=== PATIENT | female | born 1975 | race Caucasian/White ===

== ENCOUNTER 2019-06-14 19:10 | Observation (INO) ==
[2019-06-14] MEDS ORDERED: Ketorolac 15 MG/ML VIAL IVP ONE (19:38)
[2019-06-14] MEDS ORDERED: 0.9 % Sodium Chloride 1,000 ML IVC ONE (19:38)
[2019-06-14] MEDS ORDERED: Ondansetron 4 MG/2 ML VIAL IVP ONE ×2 (19:38→21:26)
--- NOTE | 2019-06-14 20:33 | Emergency Department Note ---
Disposition Clinical Impression: Pyelonephritis, Acute kidney injury Leukocytosis Qualifiers: Leukocytosis type: unspecified Qualified Code(s): D72.829 - Elevated white blood cell count, unspecified Disposition: Admitted As Inpatient Condition: Fair Time of Disposition: 22:08 General Adult HPI - General Chief complaint: ED Abdominal Pain Stated complaint: Right flank pain, abdominal pain Time Seen by Provider: 06/14/19 19:28 Source: patient Mode of arrival: ambulatory Limitations: no limitations Nursing Notes Reviewed: Yes Vital Signs Reviewed: Yes - History of Present Illness HPI Narrative: 43-year-old female with no significant past medical history presenting to the emergency department chief complaint of flank pain, nausea and vomiting. Patient states approximately 10 days ago she was diagnosed with urinary tract infection and placed on Bactrim. She continued to have symptoms. She was called and stated that her culture grew out Pseudomonas. She followed up with her primary care physician who changed her antibiotics to ciprofloxacin but patient remains symptomatic and for the past 2 days has had right-sided flank pain, nausea, vomiting and diaphoresis. She states she has been taking ib uprofen [id number] for pain relief but does feel that she has had a fever. Pain Scale: 8 - Related Data Home Medications Medication Instructions Recorded Confirmed Estradiol [Estrace] 1 mg PO DAILY 05/25/16 06/15/19 FLUoxetine HCl [Fluoxetine HCl] 40 mg PO DAILY 06/15/19 06/15/19 Omeprazole [PriLOSEC] 20 mg PO DAILY 06/15/19 06/15/19 Allergies Allergy/AdvReac Type Severity Reaction Status Date / Time prochlorperazine Allergy Seizure Verified 06/30/16 20:58 [From Compazine] All systems ED: reviewed and negative except as stated. Constitutional: Reports: as per HPI Eyes: Reports: as per HPI ENT ED: Reports: as per HPI Cardiovascular: Denies: chest pain Respiratory: Denies: dyspnea Gastrointestinal: Reports: nausea, vomiting Genitourinary: Reports: as per HPI Musculoskeletal: Reports: as per HPI Integumentary: Reports: as per HPI Neurological: Reports: as per HPI Psychiatric: Reports: as per HPI Endocrine: Reports: as per HPI Hematological/Lymphatic: Reports: as per HPI Allergic/Immunologic: Reports: as per HPI Past Medical History - Past Medical History Attestation: Yes The following information was validated with the patient. Medical history: Reports: cancer, GERD, kidney stones, other Surgical history: Reports: hysterectomy, other Psychiatric history: Reports: anxiety, depression MANAGER FINANCIAL REPORTING history: Reports: no MANAGER FINANCIAL REPORTING history - Social History Smoking Status: Never smoker Smokeless Tobacco Status: No Alcohol use: Reports: none Drug use: Reports: none Physical Exam - General Limitations: no limitations General appearance: alert, in no apparent distress - Head Head exam: atraumatic, normocephalic, normal inspection - Eye Eye exam: Absent: scleral icterus - ENT ENT exam: mucous membranes dry - Neck Neck exam: Present: full ROM - Chest Chest inspection: Present: symmetric chest wall rise - Respiratory Respiratory exam: Present: normal lung sounds bilaterally. Absent: respiratory distress, wheezes - Cardiovascular Cardiovascular exam: Present: regular rate, normal rhythm, normal heart sounds - Abdominal Exam Abdominal exam: Present: soft, tenderness (Right flank). Absent: distention, guarding, rebound, rigidity - Extremities Exam Extremities exam: Present: full ROM - Neurological Exam Neurological exam: Present: alert, oriented X3 - Psychiatric Psychiatric exam: Present: normal affect - Skin Skin exam: Present: warm Course Course Narrative: 43-year-old female presenting to the emergency department chief complaint of right flank pain, nausea and vomiting. In the room she is alert and oriented 3 and hemodynamically stable. She is diaphoretic on exam. She does have right flank pain and suprapubic abdominal pain. Concern for pyelonephritis versus infected kidney stone his patient does have a history of stones in the past. We will obtain basic labs, urine analysis, CT of the abdomen and pelvis. Disposition pending. Patient agrees with this plan. - Reevaluation(s) Reevaluation #1: Patient's laboratory analysis shows leukocytosis and acute kidney injury. CT of abdomen and pelvis concerning for pyelonephritis. Patient remains nauseated and unable to hold by mouth medications down. We will plan to admit the patient for pyelonephritis and acute kidney injury. Patient remains alert and oriented 3 and hemodynamically stable. Patient agrees with this plan. I spoke to the hospitalist advertising consultant Dr. Carnes who agrees to accept the patient at this time. Vital Signs Temperature 97.7 F 06/14/19 19:29 Pulse Rate 82 06/14/19 19:29 Respiratory Rate 20 06/14/19 19:29 Blood Pressure 146/75 06/14/19 19:29 O2 Sat by Pulse Oximetry 100 06/14/19 19:29 Temperature 97.7 F 06/14/19 19:29 Pulse Rate 79 06/14/19 22:03 Respiratory Rate 20 06/14/19 19:29 Blood Pressure 141/91 06/14/19 22:03 O2 Sat by Pulse Oximetry 100 06/14/19 22:03 Oxygen Delivery Oxygen Delivery Room Air Medical Decision Making - Lab Data Result diagrams: 06/15/19 04:51 06/15/19 02:19 Lab Results 06/14/19 06/14/19 06/14/19 Range/Units 20:19 20:19 21:29 WBC 14.9 H (4.3-11.1) K/mcL RBC 4.32 (3.82-4.97) M/mcL Hgb 13.3 (11.5-15.4) g/dL Hct 40.2 (35.3-44.9) % MCV 93.1 (83.0-100.0) fL MCH 30.8 (28.0-33.3) pg MCHC 33.1 (31.6-35.5) g/dL RDW 12.1 (11.5-14.5) % Plt Count 276 (140-400) K/mcL MPV 10.0 (9.4-12.4) fL Immature Gran % 0.5 (0-4) % Seg Neutrophils % 70.9 % Lymphocytes % 19.7 % Monocytes % 7.5 % Eosinophils % 1.0 % Basophils % 0.4 % Neutrophils # 10.6 H (1.6-8.9) K/mcL Lymphocytes # 2.9 (0.6-4.6) K/mcL Monocytes # 1.1 (0.0-1.3) K/mcL Eosinophils # 0.2 (0.0-0.6) K/mcL Basophils # 0.1 (0.0-0.2) K/mcL Sodium 141 (136-145) mEq/L Potassium 3.8 (3.5-5.1) mEq/L Chloride 107 (98-107) mEq/L Carbon Dioxide 25 (23-29) mEq/L BUN 22 H (6-20) mg/dL Creatinine 1.51 H (0.60-1.20) mg/dL Est GFR ( Amer) 46 L (> 60) Est GFR (Non-Af Amer) 38 L (> 60) BUN/Creatinine Ratio 15 (6-26) Glucose 110 H (70-105) mg/dL Calculated Osmolality 296 (280-300) Lactic Acid (0.5-2.2) mmol/L Calcium 8.6 (8.6-10.3) mg/dL Total Bilirubin 0.3 (0.3-1.0) mg/dL Direct Bilirubin 0.1 (0.0-0.2) mg/dL Indirect Bilirubin 0.2 (0.0-1.2) mg/dL AST 18 (13-39) Units/L ALT 22 (7-52) Units/L Alkaline Phosphatase 84 (34-104) Units/L Serum Total Protein 6.5 (6.4-8.9) g/dL Albumin 3.9 (3.5-5.7) g/dL Globulin 2.6 (2.4-3.5) g/dL Albumin/Globulin Ratio 1.5 (1.1-2.2) Lipase 24 (11-82) Units/L Urine Color Yellow (Yellow) Urine Clarity Clear (Clear) Urine pH 6.0 (5.0-8.0) pH Units Ur Specific Conner 1.009 L (1.010-1.025) Urine Protein Negative (Neg-Trace) mg/dL Urine Glucose (UA) Normal (Normal) mg/dL Urine Ketones Negative (Negative) mg/dL Urine Blood Trace H (Negative) Urine Nitrite Negative (Negative) Urine Bilirubin Negative (Negative) Urine Urobilinogen Normal (Normal) mg/dL Ur Leukocyte Esterase Negative (Negative) Urine Microscopic RBC 5-15 H (0-3) per hpf Urine Microscopic WBC 0-3 (0-3) per hpf Ur Squamous Epith Cells Many H (None-Few) per lpf Urine Bacteria Few (None-Few) per hpf Hyaline Casts None Seen (None-Few) per lpf Ur Culture Indicated? YES A (NO) Urine Test (Negative) 06/14/19 06/14/19 Range/Units 21:29 21:39 WBC (4.3-11.1) K/mcL RBC (3.82-4.97) M/mcL Hgb (11.5-15.4) g/dL Hct (35.3-44.9) % MCV (83.0-100.0) fL MCH (28.0-33.3) pg MCHC (31.6-35.5) g/dL RDW (11.5-14.5) % Plt Count (140-400) K/mcL MPV (9.4-12.4) fL Immature Gran % (0-4) % Seg Neutrophils % % Lymphocytes % % Monocytes % % Eosinophils % % Basophils % % Neutrophils # (1.6-8.9) K/mcL Lymphocytes # (0.6-4.6) K/mcL Monocytes # (0.0-1.3) K/mcL Eosinophils # (0.0-0.6) K/mcL Basophils # (0.0-0.2) K/mcL Sodium (136-145) mEq/L Potassium (3.5-5.1) mEq/L Chloride (98-107) mEq/L Carbon Dioxide (23-29) mEq/L BUN (6-20) mg/dL Creatinine (0.60-1.20) mg/dL Est GFR ( Amer) (> 60) Est GFR (Non-Af Amer) (> 60) BUN/Creatinine Ratio (6-26) Glucose (70-105) mg/dL Calculated Osmolality (280-300) Lactic Acid 2.5 H (0.5-2.2) mmol/L Calcium (8.6-10.3) mg/dL Total Bilirubin (0.3-1.0) mg/dL Direct Bilirubin (0.0-0.2) mg/dL Indirect Bilirubin (0.0-1.2) mg/dL AST (13-39) Units/L ALT (7-52) Units/L Alkaline Phosphatase (34-104) Units/L Serum Total Protein (6.4-8.9) g/dL Albumin (3.5-5.7) g/dL Globulin (2.4-3.5) g/dL Albumin/Globulin Ratio (1.1-2.2) Lipase (11-82) Units/L Urine Color (Yellow) Urine Clarity (Clear) Urine pH (5.0-8.0) pH Units Ur Specific Conner (1.010-1.025) Urine Protein (Neg-Trace) mg/dL Urine Glucose (UA) (Normal) mg/dL Urine Ketones (Negative) mg/dL Urine Blood (Negative) Urine Nitrite (Negative) Urine Bilirubin (Negative) Urine Urobilinogen (Normal) mg/dL Ur Leukocyte Esterase (Negative) Urine Microscopic RBC (0-3) per hpf Urine Microscopic WBC (0-3) per hpf Ur Squamous Epith Cells (None-Few) per lpf Urine Bacteria (None-Few) per hpf Hyaline Casts (None-Few) per lpf Ur Culture Indicated? (NO) Urine Test Negative (Negative) Attestation Statement - Attestation Attestation: I have seen this patient with the resident physician, I have personally evaluated this patient. I had reviewed the chart and document dictation by the resident physician and aM in agreement with the information documented by the resident physician. Please see documentation by the resident physician for complete chart including past medical history, family medical history, review of systems, current history and physical and laboratory and imaging studies. I was present for all procedures, provided direct supervision for all procedures, was present for the entirety of all procedures and provided direct guidance during the procedures. Please see documentation by the resident physician for any procedures performed. I have reviewed all interpretations of EKGs, and reviewed all EKGs performed on patient's as well. I have also reviewed reports of imaging as provided by radiology.
[2019-06-14 20:46] LABS: White Blood Count 14.9 K/mcL (4.3-11.1)
[2019-06-14 20:47] LABS: Hematocrit 40.2 % (35.3-44.9); Hemoglobin 13.3 g/dL (11.5-15.4); Mean Corpuscular HGB Conc 33.1 g/dL (31.6-35.5); Mean Corpuscular Hemoglobin 30.8 pg (28.0-33.3); Mean Corpuscular Volume 93.1 fL (83.0-100.0); Neutrophils # 10.6 K/mcL (1.6-8.9); Platelet Count 276 K/mcL (140-400); Red Blood Count 4.32 M/mcL (3.82-4.97); Red Cell Distribution Width 12.1 % (11.5-14.5); Segmented Neutrophils % 70.9 %
[2019-06-14 20:48] LABS: Basophils # 0.1 K/mcL (0.0-0.2); Basophils % 0.4 %; Eosinophils # 0.2 K/mcL (0.0-0.6); Immature Granulocytes % 0.5 % (0-4); Lymphocytes # 2.9 K/mcL (0.6-4.6); Lymphocytes % 19.7 %; Monocytes # 1.1 K/mcL (0.0-1.3); Monocytes % 7.5 %
[2019-06-14 20:50] LABS: Bilirubin,Direct 0.1 mg/dL (0.0-0.2); Bilirubin,Total 0.3 mg/dL (0.3-1.0); Calcium 8.6 mg/dL (8.6-10.3); Potassium 3.8 mEq/L (3.5-5.1)
[2019-06-14 20:51] LABS: Albumin 3.9 g/dL (3.5-5.7); Albumin/Globulin Ratio 1.5 (1.1-2.2); Bilirubin,Indirect 0.2 mg/dL (0.0-1.2); Globulin 2.6 g/dL (2.4-3.5); Total Protein 6.5 g/dL (6.4-8.9)
--- NOTE | 2019-06-14 21:19 | Emergency Department Note ---
Disposition Clinical Impression: Pyelonephritis, Leukocytosis, Acute kidney injury Disposition: Admitted As Inpatient Condition: Fair Referrals: Lorraine Streeter DO [Primary Care Provider] - Forms: ED Satisfaction Letter, Work/School Release Time of Disposition: 21:21 Abdominal Pain HPI - General Chief Complaint: ED Abdominal Pain Stated Complaint: Right flank pain, abdominal pain Time Seen by Provider: 06/14/19 19:28 Source: patient Mode of arrival: ambulatory Limitations: no limitations Nursing Notes Reviewed: Yes Vital Signs Reviewed: Yes - History of Present Illness Pain Scale: 8 - Related Data Home Medications Medication Instructions Recorded Confirmed Lansoprazole [Prevacid] 30 mg PO DAILY 09/28/15 05/25/16 DULoxetine [Cymbalta] 30 mg PO DAILY 05/25/16 05/25/16 Estradiol [Estrace] 1 mg PO DAILY 05/25/16 05/25/16 LORazepam [Ativan] 0.5 mg PO DAILY 05/25/16 05/25/16 Previous Rx's Medication Instructions Recorded Docusate [Colace] 100 mg PO BID #60 capsule 05/25/16 Ibuprofen [Motrin] 600 mg PO Q6HR PRN #40 tab 05/25/16 OxyCODONE/APAP 5/325 [Percocet 1 each PO Q6HR PRN #40 tablet 05/25/16 5/325 MG] Ondansetron ODT [Zofran ODT] 4 mg SL Q6HR PRN #14 tab.rapdis 09/07/18 Sulfamethoxazole/Trimeth DS 1 each PO BID #28 tablet 09/07/18 [Bactrim DS] Allergies Allergy/AdvReac Type Severity Reaction Status Date / Time prochlorperazine Allergy Seizure Verified 06/30/16 20:58 [From Compazine] All systems ED: reviewed and negative except as stated. Review of Systems: As Per HPI Abdominal Pain PMH - Past Medical History Medical history: Reports: cancer, GERD, kidney stones, other Female Surgical History: Reports: hysterectomy, OMAR/BSO RN PSYCH history: Reports: no RN PSYCH history Psychiatric history: Reports: anxiety, depression - Social History Smoking status: Never smoker Alcohol use: Reports: none Drug use: Reports: none Physical Exam - General Limitations: no limitations General appearance: alert, in no apparent distress Course Vital Signs Temperature 97.7 F 06/14/19 19:29 Pulse Rate 82 06/14/19 19:29 Respiratory Rate 20 06/14/19 19:29 Blood Pressure 146/75 06/14/19 19:29 O2 Sat by Pulse Oximetry 100 06/14/19 19:29 Temperature 97.7 F 06/14/19 19:29 Pulse Rate 82 06/14/19 19:29 Respiratory Rate 20 06/14/19 19:29 Blood Pressure 146/75 06/14/19 19:29 O2 Sat by Pulse Oximetry 100 06/14/19 19:50 Oxygen Delivery Oxygen Delivery Room Air Abdominal Pain - Lab Data Result diagrams: 06/14/19 20:19 06/14/19 20:19 Lab Results 06/14/19 06/14/19 Range/Units 20:19 20:19 WBC 14.9 H (4.3-11.1) K/mcL RBC 4.32 (3.82-4.97) M/mcL Hgb 13.3 (11.5-15.4) g/dL Hct 40.2 (35.3-44.9) % MCV 93.1 (83.0-100.0) fL MCH 30.8 (28.0-33.3) pg MCHC 33.1 (31.6-35.5) g/dL RDW 12.1 (11.5-14.5) % Plt Count 276 (140-400) K/mcL MPV 10.0 (9.4-12.4) fL Immature Gran % 0.5 (0-4) % Seg Neutrophils % 70.9 % Lymphocytes % 19.7 % Monocytes % 7.5 % Eosinophils % 1.0 % Basophils % 0.4 % Neutrophils # 10.6 H (1.6-8.9) K/mcL Lymphocytes # 2.9 (0.6-4.6) K/mcL Monocytes # 1.1 (0.0-1.3) K/mcL Eosinophils # 0.2 (0.0-0.6) K/mcL Basophils # 0.1 (0.0-0.2) K/mcL Sodium 141 (136-145) mEq/L Potassium 3.8 (3.5-5.1) mEq/L Chloride 107 (98-107) mEq/L Carbon Dioxide 25 (23-29) mEq/L BUN 22 H (6-20) mg/dL Creatinine 1.51 H (0.60-1.20) mg/dL Est GFR ( Amer) 46 L (> 60) Est GFR (Non-Af Amer) 38 L (> 60) BUN/Creatinine Ratio 15 (6-26) Glucose 110 H (70-105) mg/dL Calculated Osmolality 296 (280-300) Calcium 8.6 (8.6-10.3) mg/dL Total Bilirubin 0.3 (0.3-1.0) mg/dL Direct Bilirubin 0.1 (0.0-0.2) mg/dL Indirect Bilirubin 0.2 (0.0-1.2) mg/dL AST 18 (13-39) Units/L ALT 22 (7-52) Units/L Alkaline Phosphatase 84 (34-104) Units/L Serum Total Protein 6.5 (6.4-8.9) g/dL Albumin 3.9 (3.5-5.7) g/dL Globulin 2.6 (2.4-3.5) g/dL Albumin/Globulin Ratio 1.5 (1.1-2.2) Lipase 24 (11-82) Units/L Attestation Statement - Attestation Attestation: I have seen this patient with the resident physician, I have personally evaluated this patient. I had reviewed the chart and document dictation by the resident physician and aM in agreement with the information documented by the resident physician. Please see documentation by the resident physician for complete chart including past medical history, family medical history, review of systems, current history and physical and laboratory and imaging studies. I was present for all procedures, provided direct supervision for all procedures, was present for the entirety of all procedures and provided direct guidance during the procedures. Please see documentation by the resident physician for any procedures performed. I have reviewed all interpretations of EKGs, and reviewed all EKGs performed on patient's as well. I have also reviewed reports of imaging as provided by radiology. Patient resents emergency department with progressively increasing left-sided flank pain as well as nausea vomiting. The patient states that she was diagnosed with UTI about 10 days ago she was placed on Bactrim but was not getting better was contacted about 3 days ago and told that her urine grew out a bacteria that was resistant to Bactrim and that she needed a new medication she was called in a prescription for Cipro, she started taking this about 2 days ago but has progressively worsened since that time increased pain nausea vomiting subjective fevers and feeling terrible. She was told that her urine culture was positive for pseudomonas. I was able to find her urine culture, it was pansensitive. On arrival patient appears like she does not feel well, she appears slightly diaphoretic actively vomiting, but she is nontoxic awake and talking cranial nerves are intact oropharynx is normal lungs are clear heart is regular abdomen is soft no rebound guarding or peritoneal signs there is positive CVA tenderness on the left. Equal pulses in all 4 extremities skin is slightly diaphoretic warm to the touch no rashes no petechiae. Patient and IV placed she is given IV fluids IV pain medication IV nausea me dication. She was given IV Cipro after having reviewed her culture. Basic laboratory studies revealed a leukocytosis of 14,000, and an acute renal failure with a creatinine of 1.5 increased from 0.75 from earlier this year with a doubling of her creatinine. She was continued on IV hydration. CT scan was ordered to evaluate for pyelonephritis and/or kidney stone as she does have a history of kidney stones as well. Patient will be admitted to the hospital for further evaluation and management of pseudomonas UTI pyelonephritis acute renal injury/acute renal failure.
[2019-06-14 21:40] LABS: Bilirubin,Urine Negative (Negative); Blood,Urine Trace (Negative); Clarity,Urine Clear (Clear); Color,Urine Yellow (Yellow); Glucose,Urine (UA) Normal (Normal); Ketones,Urine Negative (Negative); Leukocyte Esterase,Urine Negative (Negative); Nitrite,Urine Negative (Negative); Protein,Urine Negative (Neg-Trace); Specific Gravity,Urine 1.009 (1.010-1.025); Urobilinogen,Urine Normal (Normal)
[2019-06-14 21:44] LABS: Bacteria,Urine Few per hpf (None-Few); Hyaline Casts,Urine None Seen per lpf (None-Few); Squamous Epithelial Cell,Urine Many per lpf (None-Few); WBC,Urine 0-3 per hpf (0-3)
--- NOTE | 2019-06-15 00:34 | Internal Med History&Physical ---
Date of Encounter: 06/15/19 Time of Encounter: 00:02 Internal Medicine - H&P: HPI Chief complaint: abdominal pain Admitted From: Home Plans for Post Hospital Care: Home History of present illness: is a 43 year old female with past medical history of ALL in remission, Marmolejo's esophagus, hysterectomy presented to the ED for abdominal pain. [id number] encounter occurred At 11:30 PM. Patient reported 3 weeks ago had intercourse in the bathtub outdoors but then started feeling sick since then patient went to urgent care and was given Bactrim for possible UTI. Patient came back from [place] and saw a mail with needing to come back. Patient subsequently went to her PCP where she was switched on ciprofloxacin due to Pseudomonas and urine culture. new onset nausea and vomiting occurring on Wednesday progressive worsening unable to tolerate oral intake at home for few days thus came in the ED today . Patient reports any types of food exacerbate nausea, vomiting, and abdominal pain generalized spreading to the back mostly right-sided. No alleviating factors. Association with chills, no chest pain, shortness, diarrhea. History of non-Hodgkin lymphoma maternally, prostate cancer paternally. The patient denies smoking, drinking or drugs and lives with her spouse and independently functional. CODE STATUS v erified to be full code. Past Med Surg Social Fam HX - Past Medical History Medical history: cancer, GERD, kidney stones, other Additional medical history: leukemia Psychiatric history: anxiety, depression - Past Surgical History Surgical History: hysterectomy, other Additional surgical history: ablation, trachelectomy with unilateral salpingo- oophery, iam fundoplication, diagnostic lap, colonoscopy, laparoscopy - Social History Smoking Status: Never smoker Smokeless Tobacco Status: No Alcohol use: none Drug use: none Internal Medicine - H&P: Meds Lansoprazole [Prevacid] 30 mg PO DAILY 09/28/15 [History] DULoxetine [Cymbalta] 30 mg PO DAILY 05/25/16 [History] Docusate [Colace] 100 mg PO BID #60 capsule 05/25/16 [Rx] Estradiol [Estrace] 1 mg PO DAILY 05/25/16 [History] Ibuprofen [Motrin] 600 mg PO Q6HR PRN #40 tab 05/25/16 [Rx] LORazepam [Ativan] 0.5 mg PO DAILY 05/25/16 [History] OxyCODONE/APAP 5/325 [Percocet 5/325 MG] 1 each PO Q6HR PRN #40 tablet 05/25/16 [Rx] Ondansetron ODT [Zofran ODT] 4 mg SL Q6HR PRN #14 tab.rapdis 09/07/18 [Rx] Sulfamethoxazole/Trimeth DS [Bactrim DS] 1 each PO BID #28 tablet 09/07/18 [Rx] Allergy/AdvReac Type Severity Reaction Status Date / Time prochlorperazine Allergy Seizure Verified 06/30/16 20:58 [From Compazine] All Systems PM: A 10-system review of systems was performed and is negative for pertinent findings except as documented above in the HPI. Review of systems: General: No unintentional weightloss, +o fever Head: No headahce, No injury. Ears: No discharge, No earache Eyes: No drainage, No eye pain Mouth and Throat: No new ulcers, No pain Nose and Sinus: No new congestion, No pain, Respiratory: No cough, No sputum production, No dyspnea Cardiovascular: No chest pain, No palpitations. Gastrointestinal: + nausea, + vomiting. + abdominal pain. Genital Tract: No discharge, No pain Urinary Tract: No dysuria, No discharge. MSK: No new/worsening joint pain,+ new/worsening muscle ache. Endocrine: No cold intolerance, No polyuria Psychological: No suicidal, No homocidal ideation. - Constitutional Vitals: Temp Pulse Resp BP Pulse Ox 99 F 73 16 128/78 99 06/14/19 22:57 06/14/19 22:57 06/14/19 22:57 06/14/19 22:57 06/14/19 22:57 Exam: General Appearance: Appearing as age, well-nourished in mild acute distress. Head: Atraumatic normocephalic Skin: Normal texture, normal turgor, warm, dry. Eyes: Conjunctivae not pale with no erythema, drainage, or ulcers. Anicteric. Neck: No Lymphadenopathy in the anterior/posterior cervical chain. No thyromegaly, masses or ulcers. Trachea midline. Heart: RRR, no murmurs. Capillary refill 3 seconds Lungs: No accessory muscle usage, lungs clear to auscultation bilaterally, no wheezes or crackles. Extremities: No pitting edema, No clubbing, No cyanosis. Abdomen: Non-distended, normoactive bowel sounds. non-tender to palpation, no McBurney tenderness, Parra's sign negative. Positive CVA tenderness right side no hepatomegally. No guarding. Neuro: AOx3 with no new sensory loss or focal deficits. MSK: Strength 5/5 Upper extremity equal bilaterally. Strength 5/5 Lower extremity equal bilaterally Internal Med - H&P Results - Labs CBC & Chem 7: 06/15/19 02:19 06/15/19 02:19 Labs: Short CBC 06/14/19 Range/Units 20:19 WBC 14.9 H (4.3-11.1) K/mcL Hgb 13.3 (11.5-15.4) g/dL Hct 40.2 (35.3-44.9) % Plt Count 276 (140-400) K/mcL Neutrophils # 10.6 H (1.6-8.9) K/mcL BMP 06/14/19 20:19 Sodium 141 Potassium 3.8 Chloride 107 Carbon Dioxide 25 BUN 22 H Creatinine 1.51 H Glucose 110 H Calcium 8.6 Liver Function 06/14/19 Range/Units 20:19 Total Bilirubin 0.3 (0.3-1.0) mg/dL Direct Bilirubin 0.1 (0.0-0.2) mg/dL AST 18 (13-39) Units/L ALT 22 (7-52) Units/L Alkaline Phosphatase 84 (34-104) Units/L Albumin 3.9 (3.5-5.7) g/dL Urine 06/14/19 Range/Units 21:29 Urine Color Yellow (Yellow) Urine Clarity Clear (Clear) Urine pH 6.0 (5.0-8.0) pH Units Ur Specific [place] 1.009 L (1.010-1.025) Urine Protein Negative (Neg-Trace) mg/dL Urine Glucose (UA) Normal (Normal) mg/dL - Impressions ITS Impressions Abdomen/Pelvis CT 06/14/19 21:26 IMPRESSION: Right-sided nephrolithiasis, without evidence of an obstructive uropathy. Interval development of stranding of fat around both kidneys - rule out pyelonephritis. D/ / Pedro Bentley MD / Pedro Bentley MD Interpreting Provider: Pedro Bentley MD - Summary of Assessment and Plan Summary of Assessment and Plan: 1.Pyelonephritis: Failed outpatient Bactrim and ciprofloxacin. Last urine culture showed p ansensitive pseudomonas 05/05/2019 persisitant Leukocytosis questionable medication intake due to N/V Initiated IV Zosyn with repeat blood cultures, urine culture. 2.Intractable nausea and vomiting: Unable to tolerate oral intake, remote history of exacerbation with fatty meals. Ultrasound abdomen, test pending. In the meantime EKG to check for QT prolongation in addition to IV Zofran. Educated patient on the risks of receiving Phenergan and thus the patient declined not willing to take the risk. 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 3.Acute renal failure: Etiology. Pre-renal due to low oral intake. Urine lites ordered to check for ATN due to concern for prolonged prerenal state IVF and recheck response. 4.Severe dehydration: IVF and recheck. DVT prophylaxis: Heparin Disposition: Likely <2 day stay. - Time Spent With Patient Total time spent is greater than 36 minutes 50% in coordination of care (as documented) at patient's floor/unit and/or counseling patient: Greater than 35 minutes
[2019-06-15] MEDS ORDERED: Naloxone 0.4 MG/ML INJ IVP PRN (00:58)
[2019-06-15] MEDS: Mag Hydrox/Al Hydrox/Simeth 30 ML UDC PO PRN ×2 (02:05→19:18)
[2019-06-15] MEDS: Ondansetron 4 MG/2 ML VIAL IVP PRN ×3 (02:07→23:55)
[2019-06-15] MEDS: *HR* OxyCODONE Immed Rel 5 MG TABLET PO PRN ×2 (02:07→08:50)
[2019-06-15] MEDS: 0.9 % Sodium Chloride 1,000 ML IVC SCH ×2 (02:23→15:07)
[2019-06-15 02:35] LABS: Basophils % 0.2 %; Eosinophils % 0.2 %; Hematocrit 38.3 % (35.3-44.9); Immature Granulocytes % 0.5 % (0-4); Lymphocytes # 1.7 K/mcL (0.6-4.6); Lymphocytes % 13.4 %; Mean Corpuscular HGB Conc 33.9 g/dL (31.6-35.5); Mean Corpuscular Hemoglobin 30.6 pg (28.0-33.3); Mean Corpuscular Volume 90.1 fL (83.0-100.0); Mean Platelet Volume 10.1 fL (9.4-12.4); Monocytes # 0.7 K/mcL (0.0-1.3); Monocytes % 5.7 %; Neutrophils # 9.9 K/mcL (1.6-8.9); Platelet Count 290 K/mcL (140-400); Red Blood Count 4.25 M/mcL (3.82-4.97); White Blood Count 12.4 K/mcL (4.3-11.1)
[2019-06-15 02:47] LABS: Prothrombin Time 11.7 Seconds (9.4-12.1)
[2019-06-15 02:54] LABS: Calcium 8.5 mg/dL (8.6-10.3); Chol/HDL Ratio 4.7 (0-4.9); Magnesium 2.2 mg/dL (1.6-2.6); Phosphorous 4.3 mg/dL (2.7-4.5)
[2019-06-15 03:37] LABS: Bilirubin,Urine Negative (Negative); Blood,Urine Negative (Negative); Clarity,Urine Clear (Clear); Color,Urine Yellow (Yellow); Glucose,Urine (UA) Normal (Normal); Ketones,Urine Negative (Negative); Leukocyte Esterase,Urine Negative (Negative); Nitrite,Urine Negative (Negative); Protein,Urine Negative (Neg-Trace); Urobilinogen,Urine Normal (Normal)
[2019-06-15 05:15] LABS: Basophils % 0.4 %; Eosinophils % 0.1 %; Hematocrit 37.1 % (35.3-44.9); Hemoglobin 12.8 g/dL (11.5-15.4); Immature Granulocytes % 0.5 % (0-4); Lymphocytes # 2.2 K/mcL (0.6-4.6); Mean Corpuscular HGB Conc 34.5 g/dL (31.6-35.5); Mean Corpuscular Hemoglobin 31.2 pg (28.0-33.3); Mean Corpuscular Volume 90.5 fL (83.0-100.0); Mean Platelet Volume 10.2 fL (9.4-12.4); Monocytes # 0.7 K/mcL (0.0-1.3); Monocytes % 6.6 %; Platelet Count 276 K/mcL (140-400); Red Cell Distribution Width 12.1 % (11.5-14.5); Segmented Neutrophils % 72.4 %
[2019-06-15] MEDS: *HR* Heparin 5,000 UNIT/ML VIAL SQ SCH ×3 (05:48→21:30)
--- NOTE | 2019-06-15 07:28 | Internal Med Progress Note ---
<Silvana Hernandez - Last Filed: 06/15/19 12:34> Hospitalist Progress Note - Encounter Date of Encounter: 06/15/19 - Exam Vitals: Temp Pulse Resp BP Pulse Ox 98.0 F 60 16 114/69 96 06/15/19 07:12 06/15/19 11:10 06/15/19 11:10 06/15/19 11:10 06/15/19 11:10 - Time Spent with Patient Total time spent is greater than 50% in coordination of care (as documented) at patient's floor/unit and/or counseling patient: Internal Medicine: Result - Labs CBC & Chem 7: 06/15/19 04:51 06/15/19 02:19 Labs: Short CBC 06/14/19 06/15/19 06/15/19 Range/Units 20:19 02:19 04:51 WBC 14.9 H 12.4 H 11.0 (4.3-11.1) K/mcL Hgb 13.3 13.0 12.8 (11.5-15.4) g/dL Hct 40.2 38.3 37.1 (35.3-44.9) % Plt Count 276 290 276 (140-400) K/mcL Neutrophils # 10.6 H 9.9 H 8.0 (1.6-8.9) K/mcL BMP 06/14/19 06/15/19 20:19 02:19 Sodium 141 142 Potassium 3.8 4.0 Chloride 107 108 H Carbon Dioxide 25 22 L BUN 22 H 19 Creatinine 1.51 H 1.34 H Glucose 110 H 124 H Calcium 8.6 8.5 L Cardiac Enzymes 06/15/19 06/15/19 Range/Units 02:19 08:57 Troponin I < 0.03 < 0.03 (< 0.04) ng/mL Liver Function 06/14/19 Range/Units 20:19 Total Bilirubin 0.3 (0.3-1.0) mg/dL Direct Bilirubin 0.1 (0.0-0.2) mg/dL AST 18 (13-39) Units/L ALT 22 (7-52) Units/L Alkaline Phosphatase 84 (34-104) Units/L Albumin 3.9 (3.5-5.7) g/dL Urine 06/14/19 06/15/19 Range/Units 21:29 03:30 Urine Color Yellow Yellow (Yellow) Urine Clarity Clear Clear (Clear) Urine pH 6.0 6.0 (5.0-8.0) pH Units Ur Specific Benson 1.009 L 1.010 (1.010-1.025) Urine Protein Negative Negative (Neg-Trace) mg/dL Urine Glucose (UA) Normal Normal (Normal) mg/dL - ABG Interpretation ABG results: PT/INR, D-dimer PT 11.7 Seconds (9.4-12.1) 06/15/19 02:19 - Impressions Impressions Abdomen/Pelvis CT 06/14/19 21:26 IMPRESSION: Right-sided nephrolithiasis, without evidence of an obstructive uropathy. Interval development of stranding of fat around both kidneys - rule out pyelonephritis. D/ / Pedro Bentley MD / Pedro Bentley MD Interpreting Provider: Pedro Bentley MD Consult Discharge Plan - Plan Referrals: Lorraine Streeter DO [Primary Care Provider] - - Attending Attestation The history, physical exam, and medical decision making was performed by the medical student either while I was physically present and actively involved or I personally re-performed the exam and medical decision making. I have verified the accuracy of the medical student's documentation with regards to the history, physical exam findings, and medical decision making. Ms Coelho is being observed for bilateral pyelonephritis awake, cont supra pubic tenderness and cva tenderness, no emesis, mild nausea, drinking fluids without difficulty, no fevers or chills gen- alert, awake,appears stated age cv- reg rate and rhythm, normal s1,s2 lungs- ctabl, no wheezing, rhonchi or crackles abd- soft, non tender, non distended, + bs neuro- AAOx3 BL Pyelonpehritis as visualized on CT scan- cont zosyn, follow Ucx Intractable N/V- resolved with intermittent zofran, Upreg neg, CT scan with normal liver, gb, and pancreas VANDANA, improving with rehydration- cont IVF this morning HLD- rec diet/excercise lifestyle modifications and outpt fu with pcp for re check of lipid panel in upcoming months <Neil Gastelum R - Last Filed: 06/15/19 14:12> Hospitalist Progress Note - Encounter Date of Encounter: 06/15/19 Time of Encounter: 07:28 - Subjective Interval History: Pt was laying in bed when I arrived. States that her pain has improved but she was starting to feel nauseous again. Denies any chest pains, trouble breathing, abdominal pains, diarrhea, constipation. Admits to dysuria, flank pain that has improved since admission, and nausea. No acute events overnight. - Exam Vitals: Temp Pulse Resp BP Pulse Ox 98.0 F 55 18 123/62 97 06/15/19 07:12 06/15/19 07:12 06/15/19 07:12 06/15/19 07:12 06/15/19 07:12 Exam: Gen: AAOx3, NAD, pleasant CVS: RRR, S1, S2, no edema Lungs: CTA B/L, no rhonchi, no wheezing, symmetrical expansion Extremities: warm, dry, radial and dorsal pedal pulses present 2+ Abdominal: soft, nontender, no guarding, no ascites Mild CVA tenderness right side. No tenderness left CVA - Assessment and Plan (1) Pyelonephritis Current Visit: Yes Status: Acute Assessment and Plan: Pt presented to ED 06/14 with worsening flank pain, nausea, vomiting, decreased oral intake, dysuria, and subjective fever Leukocytosis on admission of 14.9 CT of abdomen w/o contrast showed interval development of stranding of fat around kidneys b/l suspicious for pyelonephritis Pt had recently failed outpatient treatment of UTI symptoms with oral bactrim and ciprofloxacin Ucx obtained outpatient grew pseudomonas Admitted pt to hospital, started IV fluids, Zosyn, given zofran and pain medications. Repeat urine culture and obtained blood cultures- pending Clinically improved, will continue abx regimen while cultures pend (2) Intractable vomiting with nausea Current Visit: Yes Status: Acute Assessment and Plan: Decreased oral intake secondary to illness test negative CT scan not indicative of any other abdominal etiology of nausea/vomiting Pt has responded well to IV Zofran (3) Hyperlipidemia Current Visit: Yes Status: Acute Assessment and Plan: Elevated lipid panel obtained 06/15- no hx of hyperlipidemia Strongly suggest pt follow up with PCP outpatient for management Suggest lifestyle changes- diet changes, exercise, weight loss (4) Acute kidney injury Current Visit: Yes Status: Acute Assessment and Plan: SCr elevated to 1.51 on admission--suspect this is prerenal in nature and secondary to decreased oral intake due to nausea/vomiting IVF rehydration started, SCr improved to 1.34 on 06/15 Will recheck in AM - Time Spent with Patient Total time spent is greater than 50% in coordination of care (as documented) at patient's floor/unit and/or counseling patient: Internal Medicine: Result - Labs CBC & Chem 7: 06/15/19 04:51 06/15/19 02:19 Labs: Short CBC 06/14/19 06/15/19 06/15/19 Range/Units 20:19 02:19 04:51 WBC 14.9 H 12.4 H 11.0 (4.3-11.1) K/mcL Hgb 13.3 13.0 12.8 (11.5-15.4) g/dL Hct 40.2 38.3 37.1 (35.3-44.9) % Plt Count 276 290 276 (140-400) K/mcL Neutrophils # 10.6 H 9.9 H 8.0 (1.6-8.9) K/mcL BMP 06/14/19 06/15/19 20:19 02:19 Sodium 141 142 Potassium 3.8 4.0 Chloride 107 108 H Carbon Dioxide 25 22 L BUN 22 H 19 Creatinine 1.51 H 1.34 H Glucose 110 H 124 H Calcium 8.6 8.5 L Cardiac Enzymes 06/15/19 Range/Units 02:19 Troponin I < 0.03 (< 0.04) ng/mL Liver Function 06/14/19 Range/Units 20:19 Total Bilirubin 0.3 (0.3-1.0) mg/dL Direct Bilirubin 0.1 (0.0-0.2) mg/dL AST 18 (13-39) Units/L ALT 22 (7-52) Units/L Alkaline Phosphatase 84 (34-104) Units/L Albumin 3.9 (3.5-5.7) g/dL Urine 06/14/19 06/15/19 Range/Units 21:29 03:30 Urine Color Yellow Yellow (Yellow) Urine Clarity Clear Clear (Clear) Urine pH 6.0 6.0 (5.0-8.0) pH Units Ur Specific Benson 1.009 L 1.010 (1.010-1.025) Urine Protein Negative Negative (Neg-Trace) mg/dL Urine Glucose (UA) Normal Normal (Normal) mg/dL - ABG Interpretation ABG results: PT/INR, D-dimer PT 11.7 Seconds (9.4-12.1) 06/15/19 02:19 - Impressions Impressions Abdomen/Pelvis CT 06/14/19 21:26 IMPRESSION: Right-sided nephrolithiasis, without evidence of an obstructive uropathy. Interval development of stranding of fat around both kidneys - rule out pyelonephritis. D/ / Pedro Bentley MD / Pedor Bentley MD Interpreting Provider: Pedro Bentley MD
[2019-06-15] MEDS: Piperacillin/Tazobactam 3.375 GM in 0.9 % Sodium Chloride Mini Bag 100 ML IVPB SCH ×3 (08:51→23:56)
[2019-06-15] MEDS: FLUoxetine 20 MG CAPSULE PO SCH (15:07)
--- NOTE | 2019-06-15 17:46 | Electrocardiograph Report ---
[place] [id number] Test Date: 2019-06-15 Pat Name: Ghislaine Coelho Department: 115 Room: 3A53 Gender: F Medical Services Coordinator: CARLA : 1975 Requested By: Eris Youngblood Order Number: [id number] Reading MD: Rodney Preciado Measurements Intervals [place] Rate: 61 P: 47 CT: 173 QRS: 36 QRSD: 88 T: 48 QT: 475 QTc: 478 Interpretive Statements SINUS RHYTHM WITH SINUS ARRHYTHMIA POSSIBLE RIGHT VENTRICULAR CONDUCTION DELAY NONSPECIFIC T-WAVE ABNORMALITY PROLONGED QT INTERVAL Electronically Signed On 06-15-2019 17:45:08 EDT by Rodney Preciado
[2019-06-15] MEDS ORDERED: Acetaminophen 325 MG TABLET PO PRN (18:13)
[2019-06-16] MEDS: *HR* Heparin 5,000 UNIT/ML VIAL SQ SCH ×2 (05:06→13:23)
[2019-06-16 06:03] LABS: Hematocrit 36.8 % (35.3-44.9); Hemoglobin 12.3 g/dL (11.5-15.4); Mean Corpuscular HGB Conc 33.4 g/dL (31.6-35.5); Mean Corpuscular Hemoglobin 30.8 pg (28.0-33.3); Mean Corpuscular Volume 92.2 fL (83.0-100.0); Mean Platelet Volume 10.5 fL (9.4-12.4); Platelet Count 277 K/mcL (140-400); Red Blood Count 3.99 M/mcL (3.82-4.97); Red Cell Distribution Width 12.1 % (11.5-14.5); White Blood Count 8.5 K/mcL (4.3-11.1)
[2019-06-16 06:24] LABS: BUN/Creatinine Ratio 14 (6-26); Blood Urea Nitrogen 15 mg/dL (6-20); Calcium 8.6 mg/dL (8.6-10.3); Carbon Dioxide 25 mEq/L (23-29); Chloride 104 mEq/L (98-107); Glucose 99 mg/dL (70-105); Osmolality,Calculated 297 (280-300); Potassium 3.8 mEq/L (3.5-5.1); Sodium 143 mEq/L (136-145); eGFR For African Americans > 60 (> 60); eGFR For Non-African Americans 54 (> 60)
[2019-06-16] MEDS: Ondansetron 4 MG/2 ML VIAL IVP PRN (07:35)
[2019-06-16] MEDS: *HR* OxyCODONE Immed Rel 5 MG TABLET PO PRN (07:36)
[2019-06-16] MEDS: FLUoxetine 20 MG CAPSULE PO SCH (07:37)
[2019-06-16] MEDS: Piperacillin/Tazobactam 3.375 GM in 0.9 % Sodium Chloride Mini Bag 100 ML IVPB SCH ×2 (07:39→15:34)
[2019-06-16] MEDS ORDERED: Acetaminophen/Aspirin/Caffeine TABLET PO PRN (11:30)
[2019-06-16 14:09] VITALS: BP 106/66
--- NOTE | 2019-06-16 14:25 | Discharge Summary ---
<Eric Quarles - Last Filed: 06/16/19 15:28> - NOTES TO OUTPATIENT PROVIDER Notes to Outpatient Provider: Ms. Coelho was admitted and treated for pyelonephritis and VANDANA, with 2 days of Zosyn and supportive care. She recovered well, tolerating by mouth intake, labs and vitals within normal limits. She wi ll be discharged on 5 further days of Augmentin, we also recommend repeat BMP and PCP follow-up in 3-5 days. Lipids were also incidentally found to be elevated, recommend reevaluation in 3-6 months. Orders not resulted at time of discharge: Pending orders 06/14/19 21:39 Culture,Blood [BC] Stat Date of Encounter: 06/16/19 Time of Encounter: 14:25 - Discharge Diagnosis (1) Pyelonephritis Priority: Primary Status: Resolved (2) Acute kidney injury Priority: Primary Status: Resolved (3) Intractable vomiting with nausea Priority: Primary Status: Resolved Qualifiers: Qualified Code(s): R11.2 - Nausea with vomiting, unspecified (4) Hyperlipidemia Priority: Secondary Status: Acute Qualifiers: Qualified Code(s): E78.5 - Hyperlipidemia, unspecified Hospital course: Ms. Coelho is a 43 year old female with past medical history of ALL in remission, Marmolejo's esophagus, hysterectomy who presented to the ED for abdominal pain. She reported 3 weeks of UTI treated outpatient with Bactrim, recent exacerbation of abdominal pain, nausea, vomiting. Evaluation demonstrated leukocytosis, CT demonstrating past trending around bilateral kidn eys, elevated creatinine. She was admitted for intractable nausea and vomiting, suspected bilateral pyelonephritis, VANDANA. She was started on IV Zosyn, supportive care with fluids, Phenergan. The next day she improved clinically, blood cultures remain negative, creatinine improved, she was held for continued monitoring and supportive care and IV antibiotics. The second day of admission the patient was significantly improved clinically, labs and vitals were all within normal limits, and she was considered stable for discharge after tolerating regular diet. She was discharged in stable condition with 5 further days by mouth Augmentin, several days of oral nausea control with Zofran. She was given follow-up with her PCP within 3-5 days and repeat BMP was recommended within 3-5 days. Discharge discussed with: patient - Time Spent with Patient Total time spent providing and/or coordinating discharge services: - Discharge Medications Prescriptions: New Amoxicillin/Clavulanate [Augmentin] 875 mg PO BIDWM 5 Days #11 tablet Acetaminophen/Aspirin/Caffeine [Excedrin EX] 1 each PO Q8HR PRN 3 Days #9 tablet PRN Reason: Headache Ondansetron HCl [Zofran] 4 mg PO Q8HR PRN 3 Days #9 tab PRN Reason: Nausea And Vomiting Continued Estradiol [Estrace] 1 mg PO DAILY Omeprazole [PriLOSEC] 20 mg PO DAILY FLUoxetine HCl [Fluoxetine HCl] 40 mg PO DAILY Home Medications: Estradiol [Estrace] 1 mg PO DAILY 05/25/16 [History] FLUoxetine HCl [Fluoxetine HCl] 40 mg PO DAILY 06/15/19 [History] Omeprazole [PriLOSEC] 20 mg PO DAILY 06/15/19 [History] Acetaminophen/Aspirin/Caffeine [Excedrin EX] 1 each PO Q8HR PRN 3 Days #9 tablet 06/16/19 [Rx] Amoxicillin/Clavulanate [Augmentin] 875 mg PO BIDWM 5 Days #11 tablet 06/16/19 [Rx] Ondansetron HCl [Zofran] 4 mg PO Q8HR PRN 3 Days #9 tab 06/16/19 [Rx] Allergies/Adverse Reactions: Allergy/AdvReac Type Severity Reaction Status Date / Time prochlorperazine Allergy Seizure Verified 06/30/16 20:58 [From Compazine] Date of admission: 06/14/19 22:11 Primary care physician: Lorraine Streeter Consults: 06/15/19 22:04 Consult to Nephrology [CONS] Routine Consulting Provider: Kidney Kathy/SANG/DEL/EMILE Reason for Consult: ESRD, dialysis Call Completed: No Discharging clinician: Eric Quarles Anticipated date of discharge: 06/16/19 - Constitutional Vitals: Temp Pulse Resp BP Pulse Ox 98.1 F 57 15 106/66 97 06/16/19 14:07 06/16/19 14:07 06/16/19 14:07 06/16/19 14:07 06/16/19 14:07 Exam: Gen: AAOx3, NAD, pleasant CVS: RRR, S1, S2, no edema Lungs: CTA B/L, no rhonchi, no wheezing, symmetrical expansion Extremities: warm, dry, radial and dorsal pedal pulses present 2+ Abdominal: soft, nontender, no guarding, no ascites Mild CVA tenderness right side. No tenderness left CVA - Patient Status Disposition: Home, Self-Care Condition: Good Functional capacity at discharge: independent ambulation Overall status at discharge: patient is progressing back to baseline - Discharge Instructions Instructions: Urinary Tract Infection in Women (DC) Follow Up With: Lorraine Streeter DO [Primary Care Provider] - 06/26/19 2:00 pm - Diet and Activity Activity: increase activity as tolerated Diet: advance to your usual diet <Silvana Hernandez - Last Filed: 06/16/19 15:53> Orders not resulted at time of discharge: Pending orders 06/14/19 21:39 Culture,Blood [BC] Stat Date of Encounter: 06/16/19 Hospital course: Ms. Coelho is a 43 year old female - Time Spent with Patient Total time spent providing and/or coordinating discharge services: Date of admission: 06/14/19 22:11 Primary care physician: Lorraine Streeter Consults: 06/15/19 22:04 Consult to Nephrology [CONS] Routine Consulting Provider: Kidney Kathy/SANG/DEL/EMILE Reason for Consult: ESRD, dialysis Call Completed: No - Constitutional Vitals: Temp Pulse Resp BP Pulse Ox 98.1 F 57 15 106/66 97 06/16/19 14:07 06/16/19 14:07 06/16/19 14:07 06/16/19 14:07 06/16/19 14:07 - Attending Attestation I examined this patient and my medical decision-making was reviewed with the Resident Physician Dr Quarles. I agree with the documented findings, disposition and treatment plan as described except to the extent set forth below. Ms Coelho is being observed for bilateral pyelonephritis awake,no cva tenderness of suprapubic pain. denies fevers or chills. feeling much better and will trial regular diet. discussed ucx being neg and will treat with oral abx upon discharge based off prior cx. She trialed advanced lunch and tolerated without issue. She has been getting headaches, frontal, tension with squeezing pressure intermittently for about a month, has had them in past. She is going to follow up with pcp if no improvement with improved oral intake and pyelo treatment this week. No associated vision changes, neck pain, emesis, photophobia. gen- alert, awake,appears stated age cv- reg rate and rhythm, normal s1,s2 lungs- ctabl abd- soft, non tender, non distended, + bs neuro- AAOx3 BL Pyelonpehritis as visualized on CT scan-ucx neg (with recent outpt tx), responded well to zosyn, will complete course with augmentin Intractable N/V- resolved Chronic tension type headaches-fu with pcp, responded to excedrin VANDANA, resolved HLD- rec diet/excercise lifestyle modifications and outpt fu with pcp for re check of lipid panel in upcoming months time spent on dc 40 min
[2019-06-16 15:35] LABS: Total Volume 24 Hour,Urine 2.83 Liters (0.60-1.60)
--- NOTE | 2019-06-16 16:46 | Nephrology Consult Note ---
<JackkarenTosin elamTaylor B - Last Filed: 06/17/19 00:02> Date of Encounter: 06/17/19 Time of Encounter: 12:15 Assessment and Plan (1) Acute kidney injury Status: Resolved VANDANA most likely related to Poor po intake at home and vomiting. GFR greater than 60 in the past. GFR 54 today, already recovering. Force fluids at home. Avoid other nephrotoxins. (2) Intractable vomiting with nausea Status: Resolved Supportive care. Qualifiers: Qualified Code(s): R11.2 - Nausea with vomiting, unspecified (3) Pyelonephritis Status: Resolved Per primary. History of Present Illness - Reason for Consult Consult date: 06/16/19 Acute Kidney Injury Requesting physician: Silvana Hernandez - Chief Complaint right flank pain - History of Present Illness Ms. Coelho is a 43 year old female who presented with flank pain and nausea, vomiting. She has been feeling "bad" for 3 weeks. She went to an urgent care and her PCP and was on Bactrim and Cipro (per patient). The nausea/vomiting got so bad, and she was not able to keep PO antibiotics down, so she came to ED. CT of abdomen/pelvis performed. Report noted. Patient has seen nephrologists at [facility], she is s/p leukemia and chemo treatments. This was when she was [age]. All previous GFR's except this admission have been greater than 60. No need for VANDANA workup, GFR already up to 54. Encouraged to force fluids at home. Avoid her hot tub and start a probiotic. Denies etoh, tobacco or illicit drug use. Past Med Surg Social Fam HX - Past Medical History Medical history: cancer, GERD, kidney stones, other Additional medical history: leukemia Psychiatric history: anxiety, depression - Past Surgical History Surgical History: hysterectomy, other Additional surgical history: ablation, trachelectomy with unilateral salpingo- oophery, iam fundoplication, diagnostic lap, colonoscopy, laparoscopy - Social History Smoking Status: Never smoker Smokeless Tobacco Status: No Alcohol use: none Drug use: none Medications and Allergies Estradiol [Estrace] 1 mg PO DAILY 05/25/16 [History] FLUoxetine HCl [Fluoxetine HCl] 40 mg PO DAILY 06/15/19 [History] Omeprazole [PriLOSEC] 20 mg PO DAILY 06/15/19 [History] Acetaminophen/Aspirin/Caffeine [Excedrin EX] 1 each PO Q8HR PRN 3 Days #9 tablet 06/16/19 [Rx] Amoxicillin/Clavulanate [Augmentin] 875 mg PO BIDWM 5 Days #11 tablet 06/16/19 [Rx] Ondansetron HCl [Zofran] 4 mg PO Q8HR PRN 3 Days #9 tab 06/16/19 [Rx] Allergy/AdvReac Type Severity Reaction Status Date / Time prochlorperazine Allergy Seizure Verified 06/30/16 20:58 [From Compazine] Review of Systems All Systems review (narrative): The remainder of the systems are negative. Constitutional: chills, fatigue, fever(s) Cardiovascular: no chest pain, no dyspnea Gastrointestinal: diarrhea, nausea, vomiting Genitourinary Female: no hematuria, no urinary frequency, no urinary hesitancy, no urinary urgency Exam - Vital Signs Vital signs: Initial Vital Signs Temp Pulse Resp BP Pulse Ox 97.7 F 82 20 146/75 100 06/14/19 19:29 06/14/19 19:29 06/14/19 19:29 06/14/19 19:29 06/14/19 19:29 Vital Signs - Last 8 Hours Temp Pulse Resp BP Pulse Ox 06/16/19 14:07 98.1 F 57 15 106/66 97 06/16/19 10:15 97.9 F 63 16 113/72 96 Intake and Output 06/16/19 06/16/19 06/16/19 07:59 15:59 23:59 Intake Total 100 / 260 160 / 260 Output Total 650 / 1150 500 / 1150 Balance -550 / -890 -340 / -890 Intake: IV Fluids 100 / 200 100 / 200 Zosyn 3.375 GM In 0.9 % Sodium 100 / 200 100 / 200 Chloride (Mini-Bag +) 100 ML @ 25 mls/hr IVPB Q8HR [facility] Rx#: [id number] Oral 60 / 60 Output: Urine 650 / 1150 500 / 1150 Other: Meal Lunch Percent of Meal Consumed 100% Weight 78.1 kg Patient Weight 06/16/19 23:59 Weight 78.1 kg - General Appearance General appearance: well-developed, well-nourished EENT: ATNC, hearing intact, vision intact Neck: supple Respiratory: clear Cardiology: no edema, normal S1, normal S2 Gastrointestinal: normoactive bowel sounds, no tenderness, no guarding Integumentary: no rash, warm and dry Neurologic: alert and oriented x3 Musculoskeletal: no deformities, no erythema Psychiatric: mood/affect appropriate, cooperative Results - Lab Results 06/16/19 05:22 06/16/19 05:22 Most recent lab results 06/16/19 06/16/19 05:22 05:42 Calcium 8.6 Urine Creatinine 51 Consult Discharge Plan - Plan Instructions: Urinary Tract Infection in Women (DC) Referrals: Lorraine Streeter DO [Primary Care Provider] - 06/21/19 11:00 am Prescriptions: Amoxicillin/Clavulanate [Augmentin] 875 mg PO BIDWM 5 Days #11 tablet Transmission Status: Received by [id number] Acetaminophen/Aspirin/Caffeine [Excedrin EX] 1 each PO Q8HR PRN 3 Days #9 tablet PRN Reason: Headache Transmission Status: Received by [id number] Ondansetron HCl [Zofran] 4 mg PO Q8HR PRN 3 Days #9 tab PRN Reason: Nausea And Vomiting Transmission Status: Received by [id number] <Dao Candelaria - Last Filed: 06/25/19 23:26> Date of Encounter: 06/16/19 Assessment and Plan (1) Acute kidney injury Status: Resolved (2) Intractable vomiting with nausea Status: Resolved Qualifiers: Qualified Code(s): R11.2 - Nausea with vomiting, unspecified (3) Pyelonephritis Status: Resolved Exam - Vital Signs Vital signs: Initial Vital Signs Temp Pulse Resp BP Pulse Ox 97.7 F 82 20 146/75 100 06/14/19 19:29 06/14/19 19:29 06/14/19 19:29 06/14/19 19:29 06/14/19 19:29 Results - Lab Results 06/16/19 05:22 06/16/19 05:22 - Attending Attestation I examined this patient and my medical decision-making was reviewed with the Resident Physician/SENIOR [employer]NAM[employer] CRM DEVELOPER. I agree with the documented findings, disposition and treatment plan as described except to the extent set forth below. In brief; 43 y o female with PMH of childhood leukemia and kidney stones admitted with flank pain and N/V with elevated SCr with CT showing possible pyelonephritis. renal consulted for managment. SCr already improving with IVF a nd pt feels much better. On exam NAD, lungs clear, Herat s1S2, abd soft NTND, Ext with no LE edema and Neuro AAOx3. Continue current regimen with fluids iv or po. Avoid nephrotoxins if possible.
== END 2019-06-16 15:40 | disposition home or self-care (01) ==
LOC: 3ANU 19:10 → EMEROOARM 19:10 → SUATTDRO 22:11 → 3ANU 22:42
PROVIDERS: ADMIT Family Medicine; ATTEND Internal Medicine